=== PATIENT | male | born 1965 | race Caucasian/White ===

== ENCOUNTER → 2016-12-11 | Outpatient (CLI) | payer BC ==
--- NOTE | ~2016-12-11 | MR66 ---
[facility] A Service of [facility] & [facility] RADIOLOGY TEXT RESULTS PATIENT: MARA QUIÑONES II LOCATION: [facility] : 69 UNIT #: [id number] AGE: [address]: Esther Gan APRN SEX: M ORDER DR: [id number] [address] [address] [id number] O MR#: [id number] Acc #: [id number] NAME: MARA QUIÑONES : 1965 SEX: M STUDY DATE/TIME: 12/11/2016 17:21 UNIT: [facility] ROOM: STUDY DESCRIPTION: MR Forearm Wo Contrast Lt Attending Physician: Esther Gan A.P.R.N. Referring Physician: Esther Gan A.P.R.N. Ordering Physician: Esther Gan A.P.R.N. Primary Care Physician: Esther Gan A.P.R.N. MRI CENTER REPORT This report is preliminary unless electronic signature is present. EXAM MRI left proximal forearm (approximately proximal third to half) without contrast 12/11/2016 COMPARISON There are no correlative studies. HISTORY Order states subcutaneous nodule. History sheet states palpable golf ball size knot for approximately 2 years somewhat tender to palpation. Patient says no pain just bothersome but has not necessarily increased in size. No trauma and no related surgery. FINDINGS There is a heterogeneous nodular mass-like lesion in the subcutaneous space of the proximal volar radial forearm centered approximately 11-12 cm distal to the radiocapitellar joint line level. The mass measures 2.0 x 1.7 x 1.2 cm (craniocaudal x AP x transverse). The mass is continuous with a proximal and distally extending subcutaneous vein. There is no surrounding inflammation. The exam was ordered and performed without IV contrast. There is minimal mass effect on the underlying musculature. 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 A vascular malformation (low flow) is a lesser consideration as is a hemangioma. Malignancy is doubtful but cannot be excluded with imaging. Vascular ultrasound/Doppler assessment is recommended to evaluate for flow and/or thrombus within the lesion. This could also provide a baseline for follow up imaging to document stability. Areas of signal void within the lesion could reflect calcification which would be best assessed with radiography if clinically warranted. No underlying bone or muscle abnormalities are noted. Acute phlebitis or thrombophlebitis is unlikely given lack of surrounding inflammation and STS. [facility] A Service of [facility] RADIOLOGY TEXT RESULTS PATIENT: MARA QUIÑONES II [id number] : [birth year] UNIT #: [id number] AGE: [address]: Esther Gan APRN SEX: M ORDER DR: the mass has been reportedly present for 2 years. IMPRESSION 1. Corresponding to the palpable mass is a heterogeneous 2.0 x 1.7 x 1.2 cm subcutaneous nodular lesion continuous with a proximal and distal subcutaneous vein. Low signal foci within the lesion could reflect calcification. Flow and/or thrombus within the lesion would need to be assessed with vascular Doppler ultrasound. Sequela of phlebitis or chronic thrombophlebitis is the primary imaging consideration. A low-flow vascular malformation or hemangioma is less likely. Malignancy is doubtful. Consider Doppler ultrasound evaluation to assess for flow and or thrombosis and this could also serve as a baseline for follow up imaging to assure stability in size. Alternatively, vascular surgical consult could be considered. 2. No bone or muscle abnormalities. 3. Remainder of the neurovascular bundles are unremarkable. Dictated by... Genesis Belle M.D. THIS IS AN ELECTRONICALLY VERIFIED REPORT Genesis Belle M.D. at 12/12/2016 1:23 PM CHANELL/nicolle TD: 12/12/2016 13:03 JOB #: [id number] MRI CENTER REPORT Page 1 of 1
== END | disposition home or self-care (01) ==
LOC: SMRI 12-10 09:30
DX: R22.32 Localized swelling, mass and lump, left upper limb (principal)
CPT/HCPCS: 73218